=== PATIENT | female | born 1990 | race African-American/Black ===

== ENCOUNTER 2016-09-01 15:36 | Emergency (ER) | payer OTHER ==
[2016-09-01] MEDS ORDERED: ACETAMINOPHEN 325 MG TAB As Ordered ONE (18:08)
--- NOTE | 2016-09-01 19:39 | EDDOCDS ---
Physician Documentation [facility] Name: Violet Monroe Age: 25 yrs Sex: Female : 1990 Arrival Date: 09/01/2016 Time: 15:36 Bed TR8 Private MD: JUSTO Gastelum Disposition: 09/01/16 18:57 Discharged to Home/Self Care. Impression: Nondisplaced fracture of medial phalanx of left lesser toe(s) - second toe, Contusion of left knee. - Condition is Stable. - Discharge Instructions: Contusion, Toe Fracture, Knee Pain. - Prescriptions for Ibuprofen 800 mg Oral Tablet - take 1 tablet by ORAL route every 8 hours As needed take with food; 30 tablet. - Medication Reconciliation, Local Pharmacy Hours form. - Follow up: JUSTO Gastelum; When: Call to arrange an appointment; Reason: Recheck today's complaints, Continuance of care. - Problem is new. - Symptoms are unchanged. Historical: - Allergies: No known drug Allergies; - Home Meds: 1. none - PMHx: Headaches; - PSHx: none; - Social history: Smoking status: Patient states was never smoker of tobacco. No barriers to communication noted, The patient speaks fluent French. - Family history: No immediate family members are acutely ill. - : The pt / caregiver states he / she is not on anticoagulants. Home medication list is obtained from the patient. - Exposure Risk Screening:: None identified. 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 5 in. (165.10 cm); Pain 10/10; 15:37 Body Mass Index 38.27 (104.33 kg, 165.10 cm) cmb MDM: 18:06 Acetaminophen Tablet 975 mg PO once ordered. mo1 18:07 Knee, Complete Ordered. EDMS 18:07 Foot, Complete Ordered. EDMS 18:42 Financial registration complete. gjb 18:56 Splint ordered. mo1 Administered Medications: 18:10 Drug: Acetaminophen 975 mg [acetaminophen 325 mg tablet (3 tabs)] Route: PO; mb9 Signatures: Dispatcher [employer] Candace Valero RN RN [facility] Shahriar Gallegos PA PA mo1 Shahriar Oliveira RN RN mb9 Kim Hadley [facility]
--- NOTE | 2016-09-01 19:39 | EDDOCDS ---
Nurse's Notes [facility] Name: Violet Monroe Age: 25 yrs Sex: Female : 1990 Arrival Date: 09/01/2016 Time: 15:36 Bed TR8 Private MD: Nirav [facility] [place] Diagnosis: Nondisplaced fracture of medial phalanx of left lesser toe(s)-second toe;Contusion of left knee Presentation: 09/01 16:13 Presenting complaint: Patient states: she fell down the stairs about an hour ago and kcs has pain in her head, left knee and left foot. Adult Sepsis Screening: The patient does not have new or worsening altered mentation. Patient's respiratory rate is less than 22. Systolic blood pressure is greater than 100. Patient has a qSOFA score of 0- Negative Sepsis Screen. Suicide/Homicide risk assessment- the patient denies having any suicidal and/or homicidal ideations and does not present with any other emotional, behavioral or mental health complaints. Status: The patient is a dependent. Transition of care: patient was not received from another setting of care. 16:13 Acuity: RAVEN Level 4 kcs 16:13 Method Of Arrival: Walkin/Carried/Asstd kcs Triage Assessment: 16:15 General: Appears comfortable, well developed, well nourished, well groomed, Behavior is kcs cooperative, pleasant. Pain: Location: left foot Pain currently is 10 out of 10 on a pain scale. HIV screening NA for this visit Offered previously. Neurological: Level of Consciousness is awake, alert. Respiratory: Airway is patent Respiratory effort is even, unlabored, Respiratory pattern is regular, symmetrical. Derm: Skin is intact, is healthy with good turgor, Skin is dry, Skin is black. 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 none - PMHx: Headaches; - PSHx: none; - Social history: Smoking status: Patient states was never smoker of tobacco. No barriers to communication noted, The patient speaks fluent Croatian. - Family history: No immediate family members are acutely ill. - : The pt / caregiver states he / she is not on anticoagulants. Home medication list is obtained from the patient. - Exposure Risk Screening:: None identified. Screenin:37 Screening information is obtained from the patient. Fall risk: No risks identified. mb9 Assistance ADL's: requires no assistance with activities of daily living. Abuse/DV Screen: The patient / caregiver reports he/she is: not in a situation that causes fear, pain or injury. Nutritional screening: No deficits noted. Advance Directives: There is no active DNR order. home support is adequate. Assessment: 19:37 General: Appears in no apparent distress, Behavior is appropriate for age, cooperative. mb9 Pain: Location: left foot Pain currently is 3 out of 10 on a pain scale. Respiratory: Airway is patent Respiratory effort is even, unlabored. Vital Signs: 15:37 BP 115 / 64; Pulse 90; Resp 16; Temp 97.6(O); Pulse Ox 100% ; Weight 104.33 kg; Height cmb 5 ft. 5 in. (165.10 cm); Pain 10/10; 15:37 Body Mass Index 38.27 (104.33 kg, 165.10 cm) cmb Vitals: 15:37 Log In Time: September 01, 2016 at 15:33. cmb ED Course: 15:36 Patient visited by Gudelia Pro. cmb 15:36 Patient moved to Waiting cmb 15:37 JAMES Gastelum is Private Physician. cmb 15:38 Patient moved to Pre RCE cmb 16:14 Triage Initiated kcs 18:01 Patient moved to Triage 2 ar3 18:02 Shahriar Gallegos PA is PHCP. mo1 18:02 Yolette Abrams MD is Attending Physician. mo1 18:11 Patient moved to TR1 ar3 18:24 Patient visited by Shahriar Gallegos PA. mo1 18:47 Patient moved to PR1 / 25 mb9 18:57 JUSTO Gastelum is Referral Physician. mo1 19:32 Patient moved to TR8 mb9 19:37 The patient / caregiver is instructed regarding the plan of care and ED course. mb9 19:37 No IV's were initiated during this patient's visit. No procedures done that require mb9 assistance. Administered Medications: 18:10 Drug: Acetaminophen 975 mg [acetaminophen 325 mg tablet (3 tabs)] Route: PO; mb9 Order Results: There are currently no results for this order. Outcome: 18:57 Discharge ordered by Provider. mo1 19:37 Discharge Assessment: Patient awake, alert and oriented x 3. No cognitive and/or mb9 functional deficits noted. Patient verbalized understanding of disposition instructions. patient administered narcotics - no. The following High Risk Discharge criteria are identified: None. Discharged to home ambulatory. Condition: good Condition: stable Condition: improved. Discharge instructions given to patient, Instructed on discharge instructions, follow up and referral plans. medication usage, Rest, Ice, Compression and Elevation. Demonstrated understanding of instructions, medications, Pt was receptive of discharge instructions/ teaching. Prescriptions given X 1. No special radiology studies were completed. Property :Personal belongings accompany Pt. 19:39 Patient left the ED. mb9 Signatures: Candace Alexis, RN RN Nat Nails, [place]MBER[place] SAMPLE COLLECTOR ar3 Gudelia Pro Michael, PA PA mo1 Shahriar Oliveira RN RN mb9 GADIEL
--- NOTE | 2016-09-01 21:46 | REP ---
LEFT FOOT, FOUR VIEWS: HISTORY: Trauma. There is a nondisplaced fracture of the head of the proximal phalange of the second digit. There is no dislocation. The joint spaces are normal in appearance. IMPRESSION: Nondisplaced fracture of the second proximal phalange. Signed by Ryne Clark MD 09/02/2016 08:19 A
--- NOTE | 2016-09-01 21:53 | REP ---
LEFT KNEE, FIVE VIEWS: HISTORY: Trauma. There is no acute fracture or dislocation. The joint spaces are normal in appearance. IMPRESSION: There is no acute fracture or dislocation. Signed by Ryne Clark MD 09/02/2016 08:19 A
--- NOTE | 2016-09-03 20:40 | EDDOCDS ---
Physician Documentation [facility] Name: Violet Monroe Age: 25 yrs Sex: Female : 1990 Arrival Date: 09/01/2016 Time: 15:36 Bed TR8 Private MD: JUSTO Gastelum Disposition: 09/01/16 18:57 Discharged to Home/Self Care. Impression: Nondisplaced fracture of medial phalanx of left lesser toe(s) - second toe, Contusion of left knee. - Condition is Stable. - Discharge Instructions: Contusion, Toe Fracture, Knee Pain. - Prescriptions for Ibuprofen 800 mg Oral Tablet - take 1 tablet by ORAL route every 8 hours As needed take with food; 30 tablet. - Medication Reconciliation, Local Pharmacy Hours form. - Follow up: JUSTO Gastelum; When: Call to arrange an appointment; Reason: Recheck today's complaints, Continuance of care. - Problem is new. - Symptoms are unchanged. Historical: - Allergies: No known drug Allergies; - Home Meds: 1. none - PMHx: Headaches; - PSHx: none; - Social history: Smoking status: Patient states was never smoker of tobacco. No barriers to communication noted, The patient speaks fluent Qatari. - Family history: No immediate family members are acutely ill. - : The pt / caregiver states he / she is not on anticoagulants. Home medication list is obtained from the patient. - Exposure Risk Screening:: None identified. 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 5 in. (165.10 cm); Pain 10/10; 15:37 Body Mass Index 38.27 (104.33 kg, 165.10 cm) cmb MDM: 18:06 Acetaminophen Tablet 975 mg PO once ordered. mo1 18:07 Knee, Complete Ordered. EDMS 18:07 Foot, Complete Ordered. EDMS 18:42 Financial registration complete. gjb 18:56 Splint ordered. mo1 20:49 [facility] [place] Agreement was scanned into [employer] and attached to record. gjb 09/02 09:38 T-Sheet-- Draft Copy was scanned into [employer] and attached to record. gb Administered Medications: 09/01 18:10 Drug: Acetaminophen 975 mg [acetaminophen 325 mg tablet (3 tabs)] Route: PO; sung Signatures: Dispatcher [employer] Candace Valero RN RN [facility] Sara Hurst, Reg Reg gb Shahriar Gallegos PA PA mo1 Shahriar Oliveira RN RN mb9 Kim Hadley The chart was reviewed and I authenticate all verbal orders and agree with the evaluation and treatment provided.Attachments: 20:49 [facility] Payment Agreement gjb 09/02 09:38 T-Sheet-- Draft Copy gb Chart Complete MTDD
--- NOTE | 2016-09-03 20:40 | EDDOCDS ---
Nurse's Notes [facility] Name: Violet Monroe Age: 25 yrs Sex: Female : 1990 Arrival Date: 09/01/2016 Time: 15:36 Bed TR8 Private MD: Nirav [facility] [place] Diagnosis: Nondisplaced fracture of medial phalanx of left lesser toe(s)-second toe;Contusion of left knee Presentation: 09/01 16:13 Presenting complaint: Patient states: she fell down the stairs about an hour ago and kcs has pain in her head, left knee and left foot. Adult Sepsis Screening: The patient does not have new or worsening altered mentation. Patient's respiratory rate is less than 22. Systolic blood pressure is greater than 100. Patient has a qSOFA score of 0- Negative Sepsis Screen. Suicide/Homicide risk assessment- the patient denies having any suicidal and/or homicidal ideations and does not present with any other emotional, behavioral or mental health complaints. Status: The patient is a dependent. Transition of care: patient was not received from another setting of care. 16:13 Acuity: RAVEN Level 4 kcs 16:13 Method Of Arrival: Walkin/Carried/Asstd kcs Triage Assessment: 16:15 General: Appears comfortable, well developed, well nourished, well groomed, Behavior is kcs cooperative, pleasant. Pain: Location: left foot Pain currently is 10 out of 10 on a pain scale. HIV screening NA for this visit Offered previously. Neurological: Level of Consciousness is awake, alert. Respiratory: Airway is patent Respiratory effort is even, unlabored, Respiratory pattern is regular, symmetrical. Derm: Skin is intact, is healthy with good turgor, Skin is dry, Skin is black. 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 none - PMHx: Headaches; - PSHx: none; - Social history: Smoking status: Patient states was never smoker of tobacco. No barriers to communication noted, The patient speaks fluent Swedish. - Family history: No immediate family members are acutely ill. - : The pt / caregiver states he / she is not on anticoagulants. Home medication list is obtained from the patient. - Exposure Risk Screening:: None identified. Screenin:37 Screening information is obtained from the patient. Fall risk: No risks identified. mb9 Assistance ADL's: requires no assistance with activities of daily living. Abuse/DV Screen: The patient / caregiver reports he/she is: not in a situation that causes fear, pain or injury. Nutritional screening: No deficits noted. Advance Directives: There is no active DNR order. home support is adequate. Assessment: 19:37 General: Appears in no apparent distress, Behavior is appropriate for age, cooperative. mb9 Pain: Location: left foot Pain currently is 3 out of 10 on a pain scale. Respiratory: Airway is patent Respiratory effort is even, unlabored. Vital Signs: 15:37 BP 115 / 64; Pulse 90; Resp 16; Temp 97.6(O); Pulse Ox 100% ; Weight 104.33 kg; Height cmb 5 ft. 5 in. (165.10 cm); Pain 10/10; 15:37 Body Mass Index 38.27 (104.33 kg, 165.10 cm) cmb Vitals: 15:37 Log In Time: September 01, 2016 at 15:33. cmb ED Course: 15:36 Patient visited by Gudelia Pro. cmb 15:36 Patient moved to Waiting cmb 15:37 Nirav [facility] is Private Physician. cmb 15:38 Patient moved to Pre RCE cmb 16:14 Triage Initiated kcs 18:01 Patient moved to Triage 2 ar3 18:02 Shahriar Gallegos PA is PHCP. mo1 18:02 Yolette Abrams MD is Attending Physician. mo1 18:11 Patient moved to TR1 ar3 18:24 Patient visited by Shahriar Gallegos PA. mo1 18:47 Patient moved to PR1 / 25 mb9 18:57 JUSTO Gastelum is Referral Physician. mo1 19:32 Patient moved to TR8 mb9 19:37 The patient / caregiver is instructed regarding the plan of care and ED course. mb9 19:37 No IV's were initiated during this patient's visit. No procedures done that require mb9 assistance. 20:49 [facility] [place] Payment Agreement was scanned into [employer] and attached to record. gjb 22:27 Foot, Complete Returned. EDMS 22:27 Knee, Complete Returned. EDMS 09/02 09:38 T-Sheet-- Draft Copy was scanned into [employer] and attached to record. gb Administered Medications: 09/01 18:10 Drug: Acetaminophen 975 mg [acetaminophen 325 mg tablet (3 tabs)] Route: PO; mb9 Order Results: Radiology Order: Knee, Complete Test: Knee, Complete REASON FOR EXAMINATION: Trauma; LEFT KNEE, FIVE VIEWS:; ; HISTORY: Trauma.; ; There is no acute fracture or dislocation. The joint spaces are normal in; appearance.; ; IMPRESSION:; ; There is no acute fracture or dislocation.; ; ; Signed by; Ryne Clark MD 09/02/2016 08:19 A; Radiology Order: Foot, Complete Test: Foot, Complete REASON FOR EXAMINATION: Trauma; LEFT FOOT, FOUR VIEWS:; ; HISTORY: Trauma.; ; There is a nondisplaced fracture of the head of the proximal phalange of the; second digit. There is no dislocation. The joint spaces are normal in; appearance.; ; IMPRESSION:; ; Nondisplaced fracture of the second proximal phalange.; ; ; Signed by; Ryne Clark MD 09/02/2016 08:19 A; Outcome: 18:57 Discharge ordered by Provider. mo1 19:37 Discharge Assessment: Patient awake, alert and oriented x 3. No cognitive and/or mb9 functional deficits noted. Patient verbalized understanding of disposition instructions. patient administered narcotics - no. The following High Risk Discharge criteria are identified: None. Discharged to home ambulatory. Condition: good Condition: stable Condition: improved. Discharge instructions given to patient, Instructed on discharge instructions, follow up and referral plans. medication usage, Rest, Ice, Compression and Elevation. Demonstrated understanding of instructions, medications, Pt was receptive of discharge instructions/ teaching. Prescriptions given X 1. No special radiology studies were completed. Property :Personal belongings accompany Pt. 19:39 Patient left the ED. mb9 Signatures: Dispatcher [employer] EDMS Candace Alexis RN RN Sara Hernandez, Micheal Reg gb Nat Lancaster, TECHNOLOGY DEVELOPMENT INTERN TECHNOLOGY DEVELOPMENT INTERN ar3 Gudelia Pro cmShahriar Forte PA PA mo1 Shahriar Oliveira RN RN mb9 Kim Hadley Chart Complete MTDD
--- NOTE | 2016-09-03 20:40 | EDDOCDS ---
Physician Documentation [facility] Name: Violet Monroe Age: 25 yrs Sex: Female : 1990 Arrival Date: 09/01/2016 Time: 15:36 Bed TR8 Private MD: JUSTO Gastelum Disposition: 09/01/16 18:57 Discharged to Home/Self Care. Impression: Nondisplaced fracture of medial phalanx of left lesser toe(s) - second toe, Contusion of left knee. - Condition is Stable. - Discharge Instructions: Contusion, Toe Fracture, Knee Pain. - Prescriptions for Ibuprofen 800 mg Oral Tablet - take 1 tablet by ORAL route every 8 hours As needed take with food; 30 tablet. - Medication Reconciliation, Local Pharmacy Hours form. - Follow up: JUSTO Gastelum; When: Call to arrange an appointment; Reason: Recheck today's complaints, Continuance of care. - Problem is new. - Symptoms are unchanged. Historical: - Allergies: No known drug Allergies; - Home Meds: 1. none - PMHx: Headaches; - PSHx: none; - Social history: Smoking status: Patient states was never smoker of tobacco. No barriers to communication noted, The patient speaks fluent Icelandic. - Family history: No immediate family members are acutely ill. - : The pt / caregiver states he / she is not on anticoagulants. Home medication list is obtained from the patient. - Exposure Risk Screening:: None identified. 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 5 in. (165.10 cm); Pain 10/10; 15:37 Body Mass Index 38.27 (104.33 kg, 165.10 cm) cmb MDM: 18:06 Acetaminophen Tablet 975 mg PO once ordered. mo1 18:07 Knee, Complete Ordered. EDMS 18:07 Foot, Complete Ordered. EDMS 18:42 Financial registration complete. gjb 18:56 Splint ordered. mo1 20:49 [facility] [place] Agreement was scanned into [employer] and attached to record. gjb 09/02 09:38 T-Sheet-- Draft Copy was scanned into [employer] and attached to record. gb Administered Medications: 09/01 18:10 Drug: Acetaminophen 975 mg [acetaminophen 325 mg tablet (3 tabs)] Route: PO; sung Signatures: Dispatcher [employer] Candace Valero RN RN [facility] Sara Hurst, Reg Reg gb Shahriar Gallegos PA PA mo1 Shahriar Oliveira RN RN mb9 Kim Hadley The chart was reviewed and I authenticate all verbal orders and agree with the evaluation and treatment provided.Attachments: 20:49 [facility] Payment Agreement gjb 09/02 09:38 T-Sheet-- Draft Copy gb Chart Complete MTDD
== END 2016-09-01 19:39 | disposition home or self-care (01) ==
LOC: M ED 15:36
DX: S80.02XA Contusion of left knee, initial encounter (principal); S92.525A Nondisplaced fracture of middle phalanx of left lesser toe(s), initial encounter for closed fracture; W10.9XXA Fall (on) (from) unspecified stairs and steps, initial encounter; Y92.019 Unspecified place in single-family (private) house as the place of occurrence of the external cause; Y93.01 Activity, walking, marching and hiking; Y99.8 Other external cause status; R51 Headache

== ENCOUNTER 2016-11-19 19:18 | Emergency (ER) | payer OTHER ==
[~2016-11-19] VITALS: Ht 165.1 cm; Wt 108.9 kg
[2016-11-19] MEDS ORDERED: NS 1,000 ML IV ONE (22:15)
[2016-11-19 22:51] LABS: BASO % 0.2 % (0.0-1.0); EOS # 0.2 K/mm3 (0.0-0.50); EOS % 1.6 % (0.0-3.0); LARGE UNSTAINED CELL # 0.1 K/mm3 (0.0-0.4); LARGE UNSTAINED CELL % 0.9 % (0.0-4.0); LYMPH # 3.4 K/mm3 (1.5-6.5); LYMPH % 24.5 % (24.0-44.0); MEAN CORPUSCULAR HEMOGLOBIN 23.5 pg (27.0-33.0); MEAN CORPUSCULAR HGB CONC 30.3 g/dl (32.0-36.5); MEAN CORPUSCULAR VOLUME 77.5 fl (80.0-96.0); MONO # 0.5 K/mm3 (0.0-0.8); MONO % 3.7 % (0.0-5.0); NEUTROPHILS # 9.6 K/mm3 (1.8-7.7); NEUTROPHILS % 69.1 % (36.0-66.0); PLATELET COUNT, AUTOMATED 292 k/mm3 (150-450); RED CELL DISTRIBUTION WIDTH 18.8 % (11.5-14.5); WHITE BLOOD COUNT 13.9 K/mm3 (4.0-10.0)
[2016-11-20 00:08] VITALS: BP 113/68
--- NOTE | 2016-11-20 01:30 | REPUSA ---
CLINICAL HISTORY: Vaginal bleeding. TECHNIQUE: Transabdominal ultrasound of the pelvis was performed. FINDINGS: Single, live intrauterine gestation. The crown-rump length measures 8 mm. This corresponds to an estimated gestation age of 6 weeks and 5 days. The gestational sac measures 2.5 cm. This corresponds to an estimated gestation age of 7 weeks and on e day. heart rate 147 beats per minutes. No subchorionic hemorrhage is noted. Unremarkable maternal adnexa. Estimated delivery date of 07/11/2017. No gross abnormality is noted. No free fluid in the cul-de-sac. IMPRESSION: Single, live intrauterine gestation. No abnormality is seen.
== END 2016-11-20 02:57 | disposition home or self-care (01) ==
LOC: M ED 20:20
DX: O20.0 Threatened abortion (principal); Z3A.01 Less than 8 weeks gestation of pregnancy

== ENCOUNTER 2017-04-05 21:52 | Outpatient (CLI) | payer OTHER ==
[~2017-04-05] VITALS: Ht 165.1 cm; Wt 106.0 kg
[2017-04-05 23:24] LABS: MEAN CORPUSCULAR HEMOGLOBIN 25.5 pg (27.0-33.0); MEAN CORPUSCULAR HGB CONC 32.5 g/dl (32.0-36.5); MEAN CORPUSCULAR VOLUME 78.6 fl (80.0-96.0); RED CELL DISTRIBUTION WIDTH 18.9 % (11.5-14.5); WHITE BLOOD COUNT 11.9 K/mm3 (4.0-10.0)
[2017-04-05 23:31] LABS: INR 0.97
[2017-07-01] MEDS ORDERED: PRENTAB9 PO (15:37)
[2017-07-03] MEDS ORDERED: TYLE325T5 PO (11:11)
[2017-07-03] MEDS ORDERED: COLA100C5 PO (11:11)
[2017-07-03] MEDS ORDERED: MOTR200T44 PO (11:11)
[2017-07-03] MEDS ORDERED: DIBU10OI TOP (11:11)
== END 2017-04-06 04:05 | disposition home or self-care (01) ==
LOC: M LDO 21:52
PROVIDERS: ATTEND Student in an Organized Health Care Education/Training Program
DX: O99.89 Other specified diseases and conditions complicating pregnancy, childbirth and the puerperium (principal); W19.XXXA Unspecified fall, initial encounter; M54.9 Dorsalgia, unspecified; R10.9 Unspecified abdominal pain; Z3A.26 26 weeks gestation of pregnancy; X58.XXXA Exposure to other specified factors, initial encounter; Y93.9 Activity, unspecified; Y92.9 Unspecified place or not applicable; Y99.8 Other external cause status

== ENCOUNTER → 2017-09-30 | Outpatient (REF) | payer OTHER ==
[2017-09-30 13:22] LABS: INFLUENZA A AMPLIFICATION NEGATIVE (NEGATIVE); INFLUENZA B AMPLIFICATION NEGATIVE (NEGATIVE); RSV AMPLIFICATION NEGATIVE (NEGATIVE)
== END ==
LOC: M LAB REF 12:14
DX: J11.1 Influenza due to unidentified influenza virus with other respiratory manifestations (principal)

== ENCOUNTER → 2017-11-20 | Outpatient (REF) | payer OTHER ==
[2017-11-20 16:40] LABS: INFLUENZA A AMPLIFICATION NEGATIVE (NEGATIVE); INFLUENZA B AMPLIFICATION NEGATIVE (NEGATIVE)
== END ==
LOC: M LAB REF 15:22
DX: J11.1 Influenza due to unidentified influenza virus with other respiratory manifestations (principal)
CPT/HCPCS: 87502